=== PATIENT | female | born 1990 | race Caucasian/White ===

== ENCOUNTER 2016-06-26 23:58 | Emergency (ER) | payer MEDICAID ==
[~2016-06-26] VITALS: Ht 172.7 cm; Wt 75.0 kg
[~2016-06-26 23:58] MED LIST: ALBU8I INH; PRED20 PO; PREN0.01 PO
[2016-06-27 00:01] VITALS: BP 131/71; PULSE 85; RESP 16; TEMP 98.3; O2SAT 99
[2016-06-27 02:23] VITALS: BP 130/76; PULSE 72; RESP 19; O2SAT 98
--- NOTE | 2016-06-27 02:37 | PD ---
HPI Chief Complaint: Abdominal Pain Time Seen by Provider: 02:26 Travel History International Travel<30 days: No Contact w/Intl Traveler<30days: No Traveled to known affect area: No History of Present Illness HPI 25-year-old female complains of chest wall pain and low abdominal pain. Patient states that she has bilateral chest wall cramping intermittently since last night. Patient denies any chest wall pain now. Patient states that the pain is not associated with exertion. Patient denies any coughing congestion fever chills. Patient started having vaginal bleeding this morning. Patient states that the vaginal bleeding stopped completely. Patient started having low abdominal cramping this evening. Patient states that she has some mild vaginal discharge. Patient denies any dysuria or frequency. Patient denies any back pain. Patient states that her menstruation period has been irregular. Patient denies any history of CAD. Patient states that she has nausea but no vomiting or diarrhea. PFSH Past Medical History Asthma: Yes Diminished Hearing: No Genitourinary: Yes (UTI'S IN PAST) Immunizations Current: Yes Tetanus Vaccination: Unknown Influenza Vaccination: No ?: Unknown : 4 Para: 3 Miscarriage: 1 Past Surgical History Surgical History: No Previous Surgery Section: Yes (X1) Social History Alcohol Use: No Tobacco Use: Yes (1/2 PPD) Substance Use: No Allergies-Medications (Allergen,Severity, Reaction): Coded Allergies: Bactrim (Verified Allergy, Severe, FACE SWELLS, ITCHING, 06/27/16) Cipro (Verified Allergy, Severe, FACE SWELLING, ITCHING, 06/27/16) Reported Meds & Prescriptions Reported Meds & Active Scripts Active No Active Prescriptions or Reported Medications Review of Systems General / Constitutional: No: Fever Eyes: No: Visual changes HENT: No: Headaches Cardiovascular: Positive: Chest Pain or Discomfort Respiratory: No: Shortness of Breath Gastrointestinal: Positive: Nausea, Abdominal Pain Genitourinary: No: Dysuria Musculoskeletal: No: Pain Skin: No Rash Neurologic: No: Weakness Psychiatric: No: Depression Endocrine: No: Polydipsia Hematologic/Lymphatic: No: Easy Bruising Physical Exam Narrative GENERAL: Well-nourished, well-developed patient. SKIN: Focused skin assessment warm/dry. HEAD: Normocephalic. EYES: No scleral icterus. No injection or drainage. NECK: Supple, trachea midline. No JVD or lymphadenopathy. CARDIOVASCULAR: Regular rate and rhythm without murmurs, gallops, or rubs. RESPIRATORY: Breath sounds equal bilaterally. No accessory muscle use. GASTROINTESTINAL: Abdomen soft, nondistended. Patient has mild tenderness on palpation suprapubic area. No rebound tenderness. No mass. MUSCULOSKELETAL: No cyanosis, or edema. BACK: Nontender without obvious deformity. No CVA tenderness. Neurologic exam normal. 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 No cervical motion tenderness. Uterus not enlarged with moderate tenderness on palpation. No adnexal mass or tenderness. Data Data Last Documented VS Vital Signs Date Time Temp Pulse Resp B/P Pulse Ox O2 Delivery O2 Flow Rate FiO2 06/27/16 02:23 72 19 130/76 98 Room Air 06/27/16 00:01 98.3 Orders Complete Blood Count With Diff (06/27/16 02:33) Comprehensive Metabolic Panel (06/27/16 02:33) Gc And Chlamydia Pcr (06/27/16 02:33) Wet Prep Profile (06/27/16 02:33) Urinalysis - C+S If Indicated (06/27/16 02:33) Iv Access Insert/Monitor (06/27/16 02:33) Ed Urine Pregnancytest Poc (06/27/16 02:33) Ceftriaxone Inj (Rocephin Inj) (06/27/16 03:30) Labs Laboratory Tests Test 06/27/16 06/27/16 02:40 02:45 Urine Color YELLOW Urine Turbidity CLEAR Urine pH 5.5 Urine Specific [place] 1.023 Urine Protein NEG mg/dL Urine Glucose (UA) NEG mg/dL Urine Ketones NEG mg/dL Urine Occult Blood NEG Urine Nitrite NEG Urine Bilirubin NEG Urine Urobilinogen LESS THAN 2.0 MG/DL Urine Leukocyte Esterase NEG Urine RBC 1 /hpf Urine WBC 1 /hpf Urine Squamous Epithelial 2 /hpf Cells Microscopic Urinalysis Comment CULT NOT INDICATED White Blood Count 14.2 TH/MM3 Red Blood Count 5.16 MIL/MM3 Hemoglobin 12.8 GM/DL Hematocrit 39.9 % Mean Corpuscular Volume 77.2 FL Mean Corpuscular Hemoglobin 24.8 PG Mean Corpuscular Hemoglobin 32.2 % Concent Red Cell Distribution Width 15.8 % Platelet Count 308 TH/MM3 Mean Platelet Volume 8.8 FL Neutrophils (%) (Auto) 62.2 % Lymphocytes (%) (Auto) 27.7 % Monocytes (%) (Auto) 4.9 % Eosinophils (%) (Auto) 3.4 % Basophils (%) (Auto) 1.8 % Neutrophils # (Auto) 8.8 TH/MM3 Lymphocytes # (Auto) 3.9 TH/MM3 Monocytes # (Auto) 0.7 TH/MM3 Eosinophils # (Auto) 0.5 TH/MM3 Basophils # (Auto) 0.3 TH/MM3 CBC Comment AUTO DIFF MDM Medical Decision Making Medical Screen Exam Complete: Yes Emergency Medical Condition: Yes Interpretation(s) Urine test negative. CBC WBC 14.2. Normal differential. UA is negative. Differential Diagnosis Differential diagnosis: Musculoskeletal, angina, NH, PE, pneumothorax, UTI, cervicitis, PID, ovarian cyst, ovarian torsion, ectopic , threatened AB. Narrative Course 25-year-old female with chest pain and low abdominal pain. Diagnosis Primary Impression: Cervicitis Patient Instructions: General Instructions Additional Instructions: Take medications as directed. Follow-up with personal physician. Return if worse. Med/Other Pt SpecificInfo: Prescription(s) given Scripts Tramadol (Ultram)50 Mg Tab50 Mg PO Q6H PRN (PAIN) #12 TAB Ref 0 Prov:Og Sommer MD 06/27/16 Doxycycline Hyclate 100 Mg Xsc235 Mg PO BID #14 CAP Ref 0 Prov:Og Sommer MD 06/27/16 Metronidazole (Flagyl)500 Mg Tab4 Tab PO ONCE #4 TAB Ref 0 Prov:Og Sommer MD 06/27/16 Disposition: 01 DISCHARGE HOME Condition: Stable Og Sommer MD June 27, 2016 02:37
[2016-06-27 03:00] LABS: AUTOMATED NEUTROPHIL # 8.8 TH/MM3 (1.8-7.7); BASOPHIL # 0.3 TH/MM3 (0-0.2); BASOPHIL % 1.8 % (0.0-2.0); EOSINOPHIL # 0.5 TH/MM3 (0-0.4); EOSINOPHIL % 3.4 % (0.0-4.0); HEMATOCRIT 39.9 % (35.0-46.0); LYMPH % 27.7 % (9.0-44.0); LYMPHOCYTE # 3.9 TH/MM3 (1.0-4.8); MEAN CELL VOLUME 77.2 FL (80.0-100.0); MEAN CORPUSCULAR HEMOGLOBIN 24.8 PG (27.0-34.0); MEAN CORPUSCULAR HGB CONC 32.2 % (32.0-36.0); MONO % 4.9 % (0.0-8.0); NEUT % 62.2 % (16.0-70.0); PLATELET COUNT 308 TH/MM3 (150-450); RED BLOOD COUNT 5.16 MIL/MM3 (4.00-5.30); RED CELL DISTRIBUTION WIDTH 15.8 % (11.6-17.2); WHITE BLOOD COUNT 14.2 TH/MM3 (4.0-11.0)
[2016-06-27 03:02] LABS: BLOOD, URINE NEG (NEG); COMMENT (UR) CULT NOT INDICATED; CULTURE IF INDICATED CULT NOT INDICATED; GLUCOSE,URINE NEG (NEG); KETONE, URINE NEG (NEG); NITRITE,URINE NEG (NEG); PH, URINE 5.5 (5.0-8.5); SQUAMOUS EPITHELIAL CELL URINE 2 /hpf (0-5); URINE COLOR YELLOW (YELLW/STRAW)
[2016-06-27 03:10] LABS: HEMO FLAGS AUTO DIFF
[2016-06-27] MEDS ORDERED: METR-1 PO (03:22)
[2016-06-27] MEDS ORDERED: DOXY100C PO (03:22)
[2016-06-27] MEDS ORDERED: ULTR50TA5 PO (03:22)
[2016-06-27 03:29] LABS: ALT (GPT) 33 U/L (10-53); ANION GAP 8 MEQ/L (5-15); AST (GOT) 23 U/L (15-37); BICARBONATE 25.5 MEQ/L (21.0-32.0); BLOOD UREA NITROGEN 15 MG/DL (7-18); CHLORIDE 105 MEQ/L (98-107); GLOMERULAR FILTRATION RATE 65 ML/MIN (>89); POTASSIUM 3.8 MEQ/L (3.5-5.1); SODIUM (NA) 138 MEQ/L (136-145)
[2016-06-27 03:30] LABS: ALKALINE PHOSPHATASE 102 U/L (45-117); TOTAL BILIRUBIN ADULT 0.3 MG/DL (0.2-1.0)
[2016-06-27] MEDS ORDERED: AZITHROMYCIN PWD FOR SUSP 1 GM PACKET PO ONE (03:30)
[2016-06-27] MEDS ORDERED: cefTRIAXone INJ 1,000 MG in SODIUM CHLORIDE 0.9% INJ 100 ML IV ONE (03:30)
[2016-06-27 03:41] LABS: ACANTHOCYTES OCC (NORMAL); OVALOCYTES 1+ (NORMAL); PLATELET ESTIMATE SMEAR NORMAL (NORMAL); PLATELET MORPHOLOGY NORMAL (NORMAL); SCAN/DIFF AUTO DIFF CONFIRMED
[2016-06-27 04:28] VITALS: BP 114/61
[2016-06-27] MEDS ORDERED: ACETAMINOPHEN 325 MG TAB PO ONE (04:45)
[2016-06-27 05:27] LABS: CHLAMYDIA PCR NOT DETECTED (NOT DETECT); NEISSERIA PCR NOT DETECTED (NOT DETECT)
--- NOTE | 2016-06-27 19:41 | EKG ---
Date Performed: 06/27/2016 Time Performed: 02:22:20 PTAGE: 25 years EKG: Sinus rhythm WITH SINUS ARRHYTHMIA NORMAL ECG NO PREVIOUS TRACING DOCTOR: Conrado Gonzales Interpretating Date/Time 06/27/2016 19:40:05
[2016-07-12] MEDS ORDERED: ETON1IMP I-DERMAL (15:58)
[2016-07-12] MEDS ORDERED: FLUC150T PO (16:31)
== END 2016-06-27 04:43 | disposition home or self-care (01) ==
LOC: NEPC 23:58
DX: N72 Inflammatory disease of cervix uteri (principal); F17.210 Nicotine dependence, cigarettes, uncomplicated
CPT/HCPCS: 80053; 81001; 84703; 85025; 87210; 87491; 87591; 93005; 96365; 99284; J0696

== ENCOUNTER 2016-07-01 09:10 | Emergency (ER) | payer MEDICAID ==
[~2016-07-01] VITALS: Ht 160 cm; Wt 100.0 kg
[~2016-07-01 09:10] MED LIST changes: -ALBU8I INH; +DOXY100C PO; +METR-1 PO; -PRED20 PO; -PREN0.01 PO; +ULTR50TA5 PO
[2016-07-01 09:12] VITALS: BP 151/97; PULSE 87; RESP 16; TEMP 98; O2SAT 99
[2016-07-01 09:21] VITALS: BP 125/68; PULSE 84; RESP 15; O2SAT 99
--- NOTE | 2016-07-01 09:57 | PD ---
Data Data Last Documented VS Vital Signs Date Time Temp Pulse Resp B/P Pulse Ox O2 Delivery O2 Flow Rate FiO2 07/01/16 09:21 84 15 125/68 99 Room Air 07/01/16 09:12 98.0 [facility] Supervised Visit with JAGDISH: Yes Narrative Course The history, exam, and medical decision-making in the associated mid-level provider note were completed with my assistance. I reviewed and agree with the findings presented. I attest that I had a [id number] encounter with the patient on the same day, and personally performed and documented my assessment and findings in the medical record. *My assessment and Findings: To 25-year-old woman who presents to the emergency Department ongoing lower abdominal pain. Seen 5 days ago for the same. She has some vaginal discharge and bleeding, as well as nausea and vomiting. Previous workup was negative. Given the discharge and the pelvic pain she was treated for PID. She still taking doxycycline. Her chlamydia and gonorrhea PCR is were negative. Her partner was reportedly test was negative as well. She presents back to the emergency department today because she still feels unwell, vomiting, lower abdominal discomfort. At this point, she has a benign abdominal exam. She has some mild lower abdominal tenderness. She saw some cervical motion tenderness. 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 Scripts No Active Prescriptions or Reported Meds Maynor Guzman MD July 01, 2016 09:57
[2016-07-01] MEDS ORDERED: NAPR500 PO (10:04)
--- NOTE | 2016-07-01 10:09 | PD ---
HPI Chief Complaint: Abdominal Pain Time Seen by Provider: 09:25 Travel History International Travel<30 days: No Contact w/Intl Traveler<30days: No Traveled to known affect area: No History of Present Illness HPI 25 year old female presents with c/o of lower abd pain & vaginal bleeding starting last night. She reports the bleeding was similar to a menstrual period & has since stopped. She describes the pain as intermittent cramping in the lower abd, non radiating, associated with N/V. She denies fever, chills, dysuria , urgency or frequency. She was seen & treated here 06/20/16 for cervicitis, although her GC/Chlamydia/Trich were negative. She denies PMH. Home meds: doxycycline & ultram PRN. PFSH Past Medical History Asthma: Yes Diminished Hearing: No Genitourinary: Yes (UTI'S IN PAST) Immunizations Current: Yes ?: Not : 4 Para: 3 Miscarriage: 1 Past Surgical History Section: Yes (X1) Social History Alcohol Use: No Tobacco Use: Yes (1/2 PPD) Substance Use: No Allergies-Medications (Allergen,Severity, Reaction): Coded Allergies: Bactrim (Verified Allergy, Severe, FACE SWELLS, ITCHING, 07/01/16) Cipro (Verified Allergy, Severe, FACE SWELLING, ITCHING, 07/01/16) Reported Meds & Prescriptions Reported Meds & Active Scripts Active No Active Prescriptions or Reported Medications Review of Systems Except as stated in HPI: all other systems reviewed are Neg Physical Exam Narrative GENERAL: Well appearing young black female. SKIN: Warm and dry. HEAD: Normocephalic. EYES: No scleral icterus. No injection or drainage. NECK: Supple, trachea midline. No JVD or lymphadenopathy. CARDIOVASCULAR: Regular rate and rhythm without murmurs, gallops, or rubs. RESPIRATORY: Breath sounds equal bilaterally. No accessory muscle use. GASTROINTESTINAL: Abdomen soft, mild suprapubic tenderness, nondistended. MUSCULOSKELETAL: No cyanosis, or edema. UROGENITAL: small amount of blood tinged discharge within the vaginal vault, Cervix non friable, Mild cervical motion tenderness, No adnexal mass or tenderness. BACK: Nontender without obvious deformity. No CVA tenderness. Data Data Last Documented VS Vital Signs Date Time Temp Pulse Resp B/P Pulse Ox O2 Delivery O2 Flow Rate FiO2 07/01/16 09:21 84 15 125/68 99 Room Air 07/01/16 09:12 98.0 MDM Medical Decision Making Medical Screen Exam Complete: Yes Emergency Medical Condition: Yes Medical Record Reviewed: Yes Differential Diagnosis endometriosis vs PID vs DUB Narrative Course 25 year old female presents with persistent mild lower abd pain cramping & minor vaginal bleeding/spotting. She is currently being tx for cervicitis, although her results were negative for GC/Chlamydia/Trich. Her physical exam is primarily benign. Plan is to continue Doxy & F/U with DIRECTOR OF SPECIAL SERVICES. Diagnosis Primary Impression: Endometriosis Patient Instructions: General Instructions Med/Other Pt SpecificInfo: Prescription(s) given Scripts Naproxen (Naprosyn)500 Mg [id number] Mg PO BID #20 TAB Ref 0 Prov:Divya Rodriguez 07/01/16 Disposition: 01 DISCHARGE HOME Condition: Stable Divya Rodriguez July 01, 2016 10:09
--- NOTE | 2016-07-05 22:03 | PD ---
HPI Chief Complaint: Abdominal Pain Time Seen by Provider: 09:25 Travel History International Travel<30 days: No Contact w/Intl Traveler<30days: No Traveled to known affect area: No History of Present Illness HPI 25 year old female presents with C/O of lower abd pain & vaginal bleeding starting last night. She reports the bleeding was similar to a menstrual period & has since stopped. She describes the pain as intermittent cramping in the lower ABD, non radiating, associated with N/V.She denies fever, chills, dysuria , urgency or frequency. She was seen & treated here 06/20/16 for cervicitis, although her GC/Chlamydia/Trich were negative. She denies PMH. Home meds: Doxy & ultram PRN. PFSH Past Medical History Asthma: Yes Diminished Hearing: No Genitourinary: Yes (UTI'S IN PAST) Immunizations Current: Yes ?: Not : 4 Para: 3 Miscarriage: 1 Past Surgical History Section: Yes (X1) Social History Alcohol Use: No Tobacco Use: Yes (1/2 PPD) Substance Use: No Allergies-Medications (Allergen,Severity, Reaction): Coded Allergies: Bactrim (Verified Allergy, Severe, FACE SWELLS, ITCHING, 07/01/16) Cipro (Verified Allergy, Severe, FACE SWELLING, ITCHING, 07/01/16) Reported Meds & Prescriptions Reported Meds & Active Scripts Active Naprosyn (Naproxen) 500 Mg Tab 500 Mg PO BID Review of Systems Except as stated in HPI: all other systems reviewed are Neg Physical Exam Narrative GENERAL: well appearing young black female. SKIN: Warm and dry. HEAD: Atraumatic. Normocephalic. EYES: Pupils equal and round. No scleral icterus. No injection or drainage. ENT: No nasal bleeding or discharge. Mucous membranes pink and moist. NECK: Trachea midline. No JVD. CARDIOVASCULAR: Regular rate and rhythm. RESPIRATORY: No accessory muscle use. Clear to auscultation. Breath sounds equal bilaterally. GASTROINTESTINAL: Abdomen soft, mild suprapubic tenderness, nondistended. Hepatic and splenic margins not palpable. MUSCULOSKELETAL: Extremities without clubbing, cyanosis, or edema. No obvious deformities. UROGENITAL: small amount of blood tinged vaginal discharge within the vaginal vault. cervix non friable, mild cervical motion tenderness, no adnexal mass or tenderness. PSYCHIATRIC: Appropriate mood and affect; insight and judgment normal. Data Data Last Documented VS Vital Signs Date Time Temp Pulse Resp B/P Pulse Ox O2 Delivery O2 Flow Rate FiO2 07/01/16 09:21 84 15 125/68 99 Room Air 07/01/16 09:12 98.0 Orders Ed Urine Pregnancytest Poc (07/01/16 10:10) MDM Medical Decision Making Medical Screen Exam Complete: Yes Emergency Medical Condition: Yes Medical Record Reviewed: Yes Differential Diagnosis PID vs DUB vs endometritis vs other Narrative Course 25 year old female presents with persistent mild lower abd pain cramping & minor bleeding/spotting. She is currently being TX for cervicitis. Her physical exam is primarily benign. Plan is to continue Doxy & F/U with Genetic Supervisor Diagnosis Primary Impression: Endometriosis Patient Instructions: General Instructions, Endometriosis (ED), Cervicitis (ED) Departure Forms: Tests/Procedures Scripts Naproxen (Naprosyn)500 Mg [id number] Mg PO BID #20 TAB Ref 0 Prov:Divya Rodriguez 07/01/16 Disposition: 01 DISCHARGE HOME Condition: Stable Divya Rodriguez July 05, 2016 22:03
[2016-07-12] MEDS ORDERED: ETON1IMP I-DERMAL (15:58)
[2016-07-12] MEDS ORDERED: FLUC150T PO (16:31)
== END 2016-07-01 10:36 | disposition home or self-care (01) ==
LOC: NEPD 09:10
DX: N73.9 Female pelvic inflammatory disease, unspecified (principal); N80.9 Endometriosis, unspecified
CPT/HCPCS: 84703; 99283

== ENCOUNTER 2016-10-29 22:11 | Emergency (ER) | payer MEDICAID ==
[~2016-10-29] VITALS: Ht 162.6 cm; Wt 108.0 kg
[~2016-10-29 22:11] MED LIST changes: -DOXY100C PO; +ETON1IMP I-DERMAL; +FLUC150T PO; -METR-1 PO; -ULTR50TA5 PO
[2016-10-29 22:12] VITALS: BP 133/77; PULSE 87; RESP 16; TEMP 97.7; O2SAT 98
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
[2016-10-29] MEDS ORDERED: DEXAMETHASONE SOD PHOS 20 MG/5 ML VIAL IM ONE (22:30)
[2016-10-29] MEDS ORDERED: MEDR4PAK PO (22:32)
[2016-10-29] MEDS ORDERED: ALBUAER3 INH (22:32)
== END 2016-10-29 22:44 | disposition home or self-care (01) ==
LOC: EDTENT 22:11
DX: J45.901 Unspecified asthma with (acute) exacerbation (principal); S39.012A Strain of muscle, fascia and tendon of lower back, initial encounter; F17.200 Nicotine dependence, unspecified, uncomplicated; Z87.09 Personal history of other diseases of the respiratory system; Z87.440 Personal history of urinary (tract) infections; X50.0XXA Overexertion from strenuous movement or load, initial encounter
CPT/HCPCS: 96372; 99284; J1100

== ENCOUNTER 2017-04-30 23:02 | Emergency (ER) | payer MEDICAID ==
[~2017-04-30] VITALS: Ht 162.6 cm; Wt 121.2 kg
[~2017-04-30 23:02] MED LIST changes: +ALBUAER3 INH; +MEDR4PAK PO
[2017-04-30 23:08] VITALS: BP 153/81; PULSE 87; RESP 18; TEMP 98.1; O2SAT 97
[2017-05-01] MEDS ORDERED: KETOROLAC TROMETHAMINE 30 MG/ML (IVP) VIAL IV PUSH ONE (00:15)
[2017-05-01] MEDS ORDERED: SODIUM CHLORIDE 0.9% FLUSH 10 ML FLUSH IVF PRN (00:15)
[2017-05-01 00:49] VITALS: O2SAT 99
[2017-05-01 01:09] LABS: BILIRUBIN, URINE NEG (NEG); BLOOD, URINE TRACE (NEG); GLUCOSE,URINE NEG (NEG); KETONE, URINE NEG (NEG); NITRITE,URINE NEG (NEG); URINE COLOR YELLOW (YELLW/STRAW); URINE LEUKOCYTE ESTERASE NEG (NEG)
[2017-05-01 01:09] LABS: BASOPHIL # 0.2 TH/MM3 (0-0.2); BASOPHIL % 1.7 % (0.0-2.0); EOSINOPHIL # 0.9 TH/MM3 (0-0.4); EOSINOPHIL % 5.8 % (0.0-4.0); HEMATOCRIT 41.7 % (35.0-46.0); HEMOGLOBIN 13.4 GM/DL (11.6-15.3); LYMPH % 27.5 % (9.0-44.0); MEAN CELL VOLUME 78.8 FL (80.0-100.0); MEAN CORPUSCULAR HEMOGLOBIN 25.4 PG (27.0-34.0); MEAN CORPUSCULAR HGB CONC 32.3 % (32.0-36.0); MEAN PLATELET VOLUME 8.8 FL (7.0-11.0); MONO % 4.1 % (0.0-8.0); MONOCYTE # 0.6 TH/MM3 (0-0.9); NEUT % 60.9 % (16.0-70.0); PLATELET COUNT 297 TH/MM3 (150-450); RED BLOOD COUNT 5.28 MIL/MM3 (4.00-5.30); RED CELL DISTRIBUTION WIDTH 14.5 % (11.6-17.2); WHITE BLOOD COUNT 14.7 TH/MM3 (4.0-11.0)
[2017-05-01 01:20] LABS: CHLORIDE 103 MEQ/L (98-107); SODIUM (NA) 137 MEQ/L (136-145)
[2017-05-01 01:21] LABS: AMORPHOUS SEDIMENT, URINE FEW; RBC, URINE 0-3 /hpf (0-3)
[2017-05-01 01:22] LABS: BACTERIA, URINE MOD /hpf
[2017-05-01 01:22] LABS: CALCIUM 9.2 MG/DL (8.5-10.1)
[2017-05-01 01:23] LABS: BICARBONATE 25.9 MEQ/L (21.0-32.0); BLOOD UREA NITROGEN 17 MG/DL (7-18); GLUCOSE,RANDOM 100 MG/DL (74-106); MAGNESIUM 2.3 MG/DL (1.5-2.5)
[2017-05-01 01:25] LABS: PROTHROMBIN TIME - PATIENT 10.6 SEC (9.8-11.6)
[2017-05-01 01:27] LABS: GLOMERULAR FILTRATION RATE 61 ML/MIN (>89)
[2017-05-01 01:31] LABS: TROPONIN I LESS THAN 0.02 NG/ML (0.02-0.05)
--- NOTE | 2017-05-01 01:35 | RADRPT ---
EXAM DATE/TIME: 05/01/2017 01:17 [facility] COMPARISON: No previous studies available for comparison. INDICATIONS : Dizziness. RADIATION DOSE: 69=8.21 CTDIvol (mGy) MEDICAL HISTORY : None SURGICAL HISTORY : None. ENCOUNTER: Initial ACUITY: 1 day PAIN SCALE: 0/10 LOCATION: cranial TECHNIQUE: Multiple contiguous axial images were obtained of the head. Using automated exposure control and adj ustment of the mA and/or kV according to patient size, radiation dose was kept as low as reasonably a chievable to obtain optimal diagnostic quality images. DICOM format image data is available electro nically for review and comparison. FINDINGS: CEREBRUM: The ventricles are normal for age. No evidence of midline shift, mass lesion, hemorrhage or acute in farction. No extra-axial fluid collections are seen. POSTERIOR FOSSA: The cerebellum and brainstem are intact. The 4th ventricle is midline. The cerebellopontine angle i s unremarkable. EXTRACRANIAL: The visualized portion of the orbits is intact. SKULL: The calvaria is intact. No evidence of skull fracture. CONCLUSION: Normal examination. Ray Caballero Jr., MD on May 01, 2017 at 1:33 Board Certified Radiologist. This report was verified electronically.
--- NOTE | 2017-05-01 01:36 | RADRPT ---
EXAM DATE/TIME: 05/01/2017 01:17 [facility] COMPARISON: No previous studies available for comparison. INDICATIONS : Neck pain. RADIATION DOSE: 37.59 CTDIvol (mGy) MEDICAL HISTORY : None SURGICAL HISTORY : None. ENCOUNTER: Initial ACUITY: 1 day PAIN SCALE: 8/10 LOCATION: neck TECHNIQUE: Volumetric scanning of the cervical spine was performed. Multiplanar reconstructions in the sagittal, coronal and oblique axial planes were performed. Using automated exposure control and adjustment o f the mA and/or kV according to patient size, radiation dose was kept as low as reasonably achievable to obtain optimal diagnostic quality images. DICOM format image data is available electronically f or review and comparison. FINDINGS: VERTEBRAE: Normal vertebral body height. ALIGNMENT: No evidence of subluxation. C2-C3: The bony spinal canal is normal in size. No evidence of disc bulge or herniation. The neural forami na are bilaterally patent. C3-C4: The bony spinal canal is normal in size. No evidence of disc bulge or herniation. The neural forami na are bilaterally patent. C4-C5: The bony spinal canal is normal in size. No evidence of disc bulge or herniation. The neural forami na are bilaterally patent. C5-C6: The bony spinal canal is normal in size. No evidence of disc bulge or herniation. The neural forami na are bilaterally patent. C6-C7: The bony spinal canal is normal in size. No evidence of disc bulge or herniation. The neural forami na are bilaterally patent. C7-T1: The bony spinal canal is normal in size. No evidence of disc bulge or herniation. The neural forami na are bilaterally patent. CONCLUSION: Normal examination. Ray Caballero Jr., MD on May 01, 2017 at 1:34 Board Certified Radiologist. This report was verified electronically.
[2017-05-01 01:40] VITALS: BP 108/55; PULSE 77; RESP 16; O2SAT 97
--- NOTE | 2017-05-01 01:57 | PD ---
HPI Chief Complaint: Back/ Neck Pain or Injury Time Seen by Provider: 00:11 Travel History International Travel<30 days: No Contact w/Intl Traveler<30days: No Traveled to known affect area: No History of Present Illness HPI 26-year-old female presents to the emergency department by private transportation for evaluation of low back pain with radiation to the left lower extremity without bladder or bowel dysfunction saddle anesthesia or lower extremity numbness tingling or weakness. Patient does complain of back pain and left lower extremity pain. 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 Patient states she does not know whether or not she has been sleeping on her right upper extremity when she awakened this morning with sharp pain in the arm. The sharp pain has resolved and patient denies any weakness of the right upper extremity. Patient is right-handed. Patient reports that when she was using a screwdriver she felt like her hand was shaking but her sibling told her that this is not a new finding that she has done this for some time. Patient denies any fever or chills. Patient reports she recently completed a course of antibiotic for urinary tract infection. Patient denies as she has an implant for control. Patient does admit to tobacco use. Patient denies any chest pain pleuritic chest pain or shortness of breath. Patient also denies any alcohol use and denies any substance use and denies IV drug abuse. [facility] Past Medical History Narrative Medical Asthma UTI tobacco use; nursing notes reviewed Asthma: Yes Diminished Hearing: No Genitourinary: Yes (UTI'S IN PAST) Immunizations Current: Yes Tetanus Vaccination: Unknown ?: Not LMP: 1 year ago : 4 Para: 3 Miscarriage: 1 Past Surgical History Section: Yes (X1) Social History Alcohol Use: No Tobacco Use: Yes (/2 PPD) Substance Use: No Allergies-Medications (Allergen,Severity, Reaction): Coded Allergies: ciprofloxacin (Verified Allergy, Severe, FACE SWELLING, ITCHING, 04/30/17) sulfamethoxazole (Verified Allergy, Severe, FACE SWELLS, ITCHING, 3/13/18) trimethoprim (Verified Allergy, Severe, FACE SWELLS, ITCHING, 04/30/17) Reported Meds & Prescriptions Reported Meds & Active Scripts Active Proair Hfa 8.5 GM Inh (Albuterol Sulfate) 90 Mcg/Act Aer 2 Puff INH Q4HR PRN 108 mcg/actuation Reported Nexplanon Implant (Etonogestrel Implant) 68 Mg Imp 68 Mg I-DERMAL ONCE Review of Systems Except as stated in HPI: all other systems reviewed are Neg Physical Exam Narrative GENERAL: Well-developed well-nourished female no acute distress no respiratory distress; GCS 15 SKIN: Warm and dry. HEAD: Atraumatic. Normocephalic. EYES: Pupils equal and round. No scleral icterus. No injection or drainage. ENT: No nasal bleeding or discharge. Mucous membranes pink and moist. NECK: Trachea midline. No JVD. CARDIOVASCULAR: Regular rate and rhythm. RESPIRATORY: No accessory muscle use. Clear to auscultation. Breath sounds equal bilaterally. GASTROINTESTINAL: Abdomen soft, non-tender, nondistended. Hepatic and splenic margins not palpable. MUSCULOSKELETAL: Extremities without clubbing, cyanosis, or edema. No obvious deformities. Positive Phalen's test right upper extremity. Distally neurovascular tendon intact. Thumb opposition intact. Capillary refill brisk and less than 2 seconds. Radial dorsalis pedal pulses 2+ to palpation bilaterally. NEUROLOGICAL: Awake and alert. GCS 15. No obvious cranial nerve deficits. Motor grossly within normal limits. Five out of 5 muscle strength in the arms and legs. Sensory exam intact. No limb ataxia. No pronator drift. Normal speech. PSYCHIATRIC: Appropriate mood and affect; insight and judgment normal. Data Data Last Documented VS Vital Signs Date Time Temp Pulse Resp B/P (MAP) Pulse Ox O2 Delivery O2 Flow Rate FiO2 05/01/17 01:40 77 16 108/55 (72) 97 Room Air 04/30/17 23:08 98.1 Orders Orders Basic Metabolic Panel (Bmp) (05/01/17 00:11) Ed Urine Pregnancytest Poc (05/01/17 00:11) Complete Blood Count With Diff (05/01/17 00:11) Magnesium (Mg) (05/01/17 00:11) Troponin I (05/01/17 00:11) Act Partial Throm Time (Ptt) (05/01/17 00:11) Prothrombin Time / Inr (Pt) (05/01/17 00:11) Urinalysis - C+S If Indicated (05/01/17 00:11) Ct Brain W/O Iv Contrast(Rout) (05/01/17 00:11) Ct Cerv Spine W/O Contrast (05/01/17 00:11) Blood Glucose (05/01/17 00:11) Ecg Monitoring (05/01/17 00:11) Iv Access Insert/Monitor (05/01/17 00:11) Oximetry (05/01/17 00:11) Sodium Chloride 0.9% Flush (Ns Flush) (05/01/17 00:15) Ketorolac Inj (Toradol Inj) (05/01/17 00:15) Urine Culture (05/01/17 00:35) Ceftriaxone Inj (Rocephin Inj) (05/01/17 02:15) Ed Discharge Order (05/01/17 02:02) Splint Or Brace Apply/Monitor (05/01/17 02:21) Labs Laboratory Tests Test 05/01/17 00:35 05/01/17 00:45 Urine Collection Type CLEAN CATCH Urine Color YELLOW Urine Turbidity SL CLOUDY Urine pH 6.0 Urine Specific [place] 1.020 Urine Protein NEG mg/dL Urine Glucose (UA) NEG mg/dL Urine Ketones NEG mg/dL Urine Occult Blood TRACE Urine Nitrite NEG Urine Bilirubin NEG Urine Urobilinogen 0.2 MG/DL Urine Leukocyte Esterase NEG Urine RBC 0-3 /hpf Urine WBC 3-5 /hpf Urine Squamous Epithelial Cells 6-8 /hpf Urine Amorphous Sediment FEW Urine Bacteria MOD /hpf Microscopic Urinalysis Comment CULTURE INDICATED White Blood Count 14.7 TH/MM3 Red Blood Count 5.28 MIL/MM3 Hemoglobin 13.4 GM/DL Hematocrit 41.7 % Mean Corpuscular Volume 78.8 FL Mean Corpuscular Hemoglobin 25.4 PG Mean Corpuscular Hemoglobin Concent 32.3 % Red Cell Distribution Width 14.5 % Platelet Count 297 TH/MM3 Mean Platelet Volume 8.8 FL Neutrophils (%) (Auto) 60.9 % Lymphocytes (%) (Auto) 27.5 % Monocytes (%) (Auto) 4.1 % Eosinophils (%) (Auto) 5.8 % Basophils (%) (Auto) 1.7 % Neutrophils # (Auto) 9.0 TH/MM3 Lymphocytes # (Auto) 4.0 TH/MM3 Monocytes # (Auto) 0.6 TH/MM3 Eosinophils # (Auto) 0.9 TH/MM3 Basophils # (Auto) 0.2 TH/MM3 CBC Comment DIFF FINAL Differential Comment Prothrombin Time 10.6 SEC Prothromb Time International Ratio 1.0 RATIO Activated Partial Thromboplast Time 29.4 SEC Blood Urea Nitrogen 17 MG/DL Creatinine 1.10 MG/DL Random Glucose 100 MG/DL Calcium Level 9.2 MG/DL Magnesium Level 2.3 MG/DL Sodium Level 137 MEQ/L Potassium Level 3.8 MEQ/L Chloride Level 103 MEQ/L Carbon Dioxide Level 25.9 MEQ/L Anion Gap 8 MEQ/L Estimat Glomerular Filtration Rate 61 ML/MIN Troponin I LESS THAN 0.02 NG/ML MDM Medical Decision Making Medical Screen Exam Complete: Yes Emergency Medical Condition: Yes Medical Record Reviewed: Yes Interpretation(s) Last Impressions Head CT 05/01/1710 Signed Impressions: Service Date/Time: Monday, May 01, 2017 01:17 - CONCLUSION: Normal examination. Ray Caballero Jr., MD Cervical Spine CT 05/01/1710 Signed Impressions: Service Date/Time: Monday, May 01, 2017 01:17 - CONCLUSION: Normal examination. Ray Caballero Jr., MD CBC & BMP Diagram 05/01/17 00:45 Calcium Level 9.2, Magnesium Level 2.3 Vital Signs Date Time Temp Pulse Resp B/P (MAP) Pulse Ox O2 Delivery O2 Flow Rate FiO2 05/01/17 01:40 77 16 108/55 (72) 97 Room Air 05/01/17 00:49 99 Room Air 04/30/17 23:58 16 04/30/17 23:08 98.1 87 18 153/81 (105) 97 Differential Diagnosis Sciatica, cervical radiculopathy, carpal tunnel syndrome, UTI, TIA, CVA, neuropathy, compartment syndrome Narrative Course IV access obtained specimens collected and sent for resulting Imaging studies ordered without acute abnormality Urinalysis moderate bacteria patient given first dose of oral antibiotic pain relief noted after IV Toradol Patient is stable for outpatient management and follow-up with her primary care provider No work 1 day Diagnosis Primary Impression: UTI (urinary tract infection) Qualified Codes: N39.0 - Urinary tract infection, site not specified Additional Impressions: Left sided sciatica Right carpal tunnel syndrome Referrals: Primary Care Physician call for appointment Patient Instructions: General Instructions Additional Instructions: Follow-up with your primary care provider Return to the emergency department for any concerns or change in condition Take medication as prescribed Complete course of antibiotic May use splint as provided Med/Other Pt SpecificInfo: Prescription(s) given Scripts Tramadol (Tramadol) 50 Mg Tab 50 MG PO Q6H Y for PAIN, #7 TAB 0 Refills Prov: Shayla Bloom MD 05/01/17 Methocarbamol (Robaxin) 750 Mg Tab 750 MG PO Q6HR for Muscle Spasm, #10 TAB 0 Refills Prov: Shayla Bloom MD 05/01/17 Ibuprofen (Ibuprofen) 800 Mg Tab 800 MG PO Q8H Y for PAIN GREATER THAN 5, #12 TAB 0 Refills Prov: Shayla Bloom MD 05/01/17 Nitrofurantoin Monohydrate Macrocrystals (Macrobid) 100 Mg Cap 100 MG PO BID for Infection for 7 Days, #14 CAP 0 Refills Prov: Shayla Bloom MD 05/01/17 Disposition: 01 DISCHARGE HOME Condition: Stable Shayla Bloom MD May 01, 2017 01:57
[2017-05-01] MEDS ORDERED: cefTRIAXone INJ 1,000 MG in SODIUM CHLORIDE 0.9% INJ 100 ML IV ONE (02:15)
[2017-05-01] MEDS ORDERED: MACR100C2 PO (02:46)
[2017-05-01] MEDS ORDERED: TRAM50TA PO (02:46)
[2017-05-01] MEDS ORDERED: ROBA750T PO (02:46)
[2017-05-01] MEDS ORDERED: IBUP1TAB7 PO (02:46)
[2017-05-01 02:52] VITALS: BP 99/55; PULSE 84; RESP 16; O2SAT 97
== END 2017-05-01 03:18 | disposition home or self-care (01) ==
LOC: PHED 23:02
DX: N39.0 Urinary tract infection, site not specified (principal); M54.32 Sciatica, left side; G56.01 Carpal tunnel syndrome, right upper limb; B96.89 Other specified bacterial agents as the cause of diseases classified elsewhere; M79.605 Pain in left leg; J45.909 Unspecified asthma, uncomplicated; F17.210 Nicotine dependence, cigarettes, uncomplicated
CPT/HCPCS: 70450; 72125; 80048; 81001; 83735; 84484; 84703; 85025; 85610; 85730; 87086; 96365; 96375; 99284; J0696; J1885; L3908

== ENCOUNTER 2017-05-12 17:48 | Emergency (ER) | payer MEDICAID ==
[~2017-05-12] VITALS: Ht 160 cm; Wt 123.0 kg
[~2017-05-12 17:48] MED LIST changes: -FLUC150T PO; +IBUP1TAB7 PO; +MACR100C2 PO; -MEDR4PAK PO; +ROBA750T PO; +TRAM50TA PO
[2017-05-12 17:52] VITALS: BP 136/96; PULSE 97; RESP 12; TEMP 98.4; O2SAT 95
--- NOTE | 2017-05-12 19:42 | RADRPT ---
EXAM DATE/TIME: 05/12/2017 19:10 [facility] COMPARISON: No previous studies available for comparison. INDICATIONS : Fell climbing over a fence. MEDICAL HISTORY : None. SURGICAL HISTORY : None. ENCOUNTER: Initial ACUITY: 1 day PAIN SCORE: 4/10 LOCATION: lumbar spine FINDINGS: Two view examination was performed. There are five non-rib bearing vertebral bodies. The vertebral bodies are in normal alignment without evidence of subluxation or scoliosis. Minimal loss of disc sp yanet height L5-S1. The pedicles are intact. Bony mineralization is normal. No fracture is identifie d. CONCLUSION: No fracture. Minimal loss of disc space height L5-S1.. Guillaume Novak MD FACR on May 12, 2017 at 19:39 Board Certified Radiologist. This report was verified electronically.
--- NOTE | 2017-05-12 19:43 | RADRPT ---
EXAM DATE/TIME: 05/12/2017 19:10 [facility] COMPARISON: No previous studies available for comparison. INDICATIONS : Abrasion on posterior elbow after fall while climbing a fence. MEDICAL HISTORY : None. SURGICAL HISTORY : None. ENCOUNTER: Initial ACUITY: 1 day PAIN SCORE: 4/10 LOCATION: Left elbow FINDINGS: Two view examination of the left elbow demonstrates no soft tissue swelling, joint effusion, fracture or dislocation. Bony mineralization is normal. CONCLUSION: No fracture. Complete series is suggested the patient remains symptomatic. Subtle fractures can eas marco be missed on 2 views.. Guillaume Novak MD FACR on May 12, 2017 at 19:40 Board Certified Radiologist. This report was verified electronically.
--- NOTE | 2017-05-12 19:44 | RADRPT ---
EXAM DATE/TIME: 05/12/2017 19:10 [facility] COMPARISON: No previous studies available for comparison. INDICATIONS : Left wrist pain after falling while climbing a fence. MEDICAL HISTORY : None. SURGICAL HISTORY : None. ENCOUNTER: Initial ACUITY: 1 day PAIN SCORE: 4/10 LOCATION: Left wrist FINDINGS: Three view examination of the left wrist demonstrates no soft tissue swelling, dislocation, or fractu re. The carpal bones are in normal alignment. The joint spaces are maintained. Bony mineralization is normal. CONCLUSION: Negative for fracture. Guillaume Novak MD FACR on May 12, 2017 at 19:41 Board Certified Radiologist. This report was verified electronically.
--- NOTE | 2017-05-12 19:54 | RADRPT ---
EXAM DATE/TIME: 05/12/2017 19:10 [facility] COMPARISON: No previous studies available for comparison. INDICATIONS : Right lateral ankle pain after falling while climbing a fence. MEDICAL HISTORY : None. SURGICAL HISTORY : None. ENCOUNTER: Initial ACUITY: 1 day PAIN SCORE: 4/10 LOCATION: Right ankle FINDINGS: Marked soft tissue swelling about the ankle more so on the medial side. Fracture is not appreciated. The CT scan could be used to exclude the subtle fracture; correlation is suggested. CONCLUSION: Marked soft tissue swelling without identifiable fracture. Guillaume Novak MD FACR on May 12, 2017 at 19:49 Board Certified Radiologist. This report was verified electronically.
--- NOTE | 2017-05-12 20:00 | RADRPT ---
EXAM DATE/TIME: 05/12/2017 19:43 [facility] COMPARISON: CT BRAIN W/O CONTRAST, May 01, 2017, 1:17. INDICATIONS : Trauma. Fall. RADIATION DOSE: 57.44 CTDIvol (mGy) MEDICAL HISTORY : None SURGICAL HISTORY : None. ENCOUNTER: Initial ACUITY: 1 day PAIN SCALE: 8/10 LOCATION: occipital TECHNIQUE: Multiple contiguous axial images were obtained of the head. Using automated exposure control and adj ustment of the mA and/or kV according to patient size, radiation dose was kept as low as reasonably a chievable to obtain optimal diagnostic quality images. DICOM format image data is available electro nically for review and comparison. FINDINGS: CEREBRUM: The ventricles are normal for age. No evidence of midline shift, mass lesion, hemorrhage or acute in farction. No extra-axial fluid collections are seen. POSTERIOR FOSSA: The cerebellum and brainstem are intact. The 4th ventricle is midline. The cerebellopontine angle i s unremarkable. EXTRACRANIAL: The visualized portion of the orbits is intact. SKULL: The calvaria is intact. No evidence of skull fracture. CONCLUSION: Negative for acute process in Guillaume Novak MD FACR on May 12, 2017 at 19:57 Board Certified Radiologist. This report was verified electronically.
[2017-05-12] MEDS ORDERED: IBUP1TAB7 PO (20:26)
[2017-05-12] MEDS ORDERED: ROBA750T PO (20:26)
--- NOTE | 2017-05-12 20:26 | PD ---
HPI Chief Complaint: Injury Time Seen by Provider: 18:47 Travel History International Travel<30 days: No Contact w/Intl Traveler<30days: No Traveled to known affect area: No History of Present Illness HPI This is a 26-year-old female here with multiple injuries after she fell off a fence from approximately 3-4 feet. He reports she was climbing over fence when her foot was stuck and fell backwards onto her right ankle, left elbow and back. She denies loss of consciousness. She now has a mild, gradual onset, generalized headache. Left elbow pain with range of motion. Right ankle pain with weightbearing. Low back pain. All pain is exacerbated by movement and slightly relieved with rest. She denies neck pain, chest pain, shortness breath , abdominal pain, paresthesia or weakness of the extremities. Symptom severity is moderate. PFSH Past Medical History Medical History: Denies Significant Hx Asthma: Yes Diminished Hearing: No Genitourinary: Yes (UTI'S IN PAST) Immunizations Current: Yes Tetanus Vaccination: > 5 Years Influenza Vaccination: No ?: Not LMP: NEXPLANON : 4 Para: 3 Miscarriage: 1 Past Surgical History Section: Yes (X1) Social History Alcohol Use: No Tobacco Use: Yes (1/2 PPD) Substance Use: No Allergies-Medications (Allergen,Severity, Reaction): Coded Allergies: ciprofloxacin (Verified Allergy, Severe, FACE SWELLING, ITCHING, 05/12/17) sulfamethoxazole (Verified Allergy, Severe, FACE SWELLS, ITCHING, 05/12/17) trimethoprim (Verified Allergy, Severe, FACE SWELLS, ITCHING, 05/12/17) Reported Meds & Prescriptions Reported Meds & Active Scripts Active Tramadol (Tramadol HCl) 50 Mg Tab 50 Mg PO Q6H PRN Robaxin (Methocarbamol) 750 Mg Tab 750 Mg PO Q6HR Ibuprofen 800 Mg Tab 800 Mg PO Q8H PRN Macrobid (Nitrofurantoin Monoh/Nitrofur Macro) 100 Mg Cap 100 Mg PO BID 7 Days Proair Hfa 8.5 GM Inh (Albuterol Sulfate) 90 Mcg/Act Aer 2 Puff INH Q4HR PRN 108 mcg/actuation Reported Nexplanon Implant (Etonogestrel Implant) 68 Mg Imp 68 Mg I-DERMAL ONCE Review of Systems Except as stated in HPI: all other systems reviewed are Neg Physical Exam Narrative GENERAL: Alert well-appearing 26-year-old female SKIN: Warm and dry. He isn't to the left elbow HEAD: Atraumatic. Normocephalic. EYES: Pupils equal and round. EOMs intact. No injection or drainage. ENT: No nasal bleeding or discharge. Mucous membranes pink and moist. No facial bone tenderness NECK: Trachea midline. No cervical spine tenderness CARDIOVASCULAR: Regular rate and rhythm. No chest wall tenderness RESPIRATORY: No accessory muscle use. Clear to auscultation. Breath sounds equal bilaterally. GASTROINTESTINAL: Abdomen soft, non-tender, nondistended. MUSCULOSKELETAL: Extremities without clubbing, cyanosis, or edema. No obvious deformities. Left upper extremity:+ttp over the olecranon & dorsal aspect of the wrist. No obvious deformity. She can flex and extend the elbow and wrist without difficulty. 2+ brachial and radial pulses. Normal sensation. Brisk cap refill. Right lower extremity: +ttp anterior aspect of the ankle. No obvious deformity. She can flex and extend the foot without difficulty. 2+ DP pulse. Brisk cap refill. BACK: No CVA tenderness. No rash. +ttp lumbar spine. No obvious deformity NEUROLOGICAL: Awake and alert. No obvious cranial nerve deficits. Motor grossly within normal limits. Five out of 5 muscle strength in the arms and legs. Normal speech. PSYCHIATRIC: Appropriate mood and affect; insight and judgment normal. Data Data Last Documented VS Vital Signs Date Time Temp Pulse Resp B/P (MAP) Pulse Ox O2 Delivery O2 Flow Rate FiO2 05/12/17 17:52 98.4 97 12 136/96 (109) 95 Orders Orders Ed Urine Pregnancytest Poc (05/12/17 18:48) Spine, Lumbar - Ltd (Ap & Lat) (05/12/17 ) Elbow, Limited (Ap&Lat) (05/12/17 ) Wrist, Complete ([id number]) (05/12/17 ) Ankle, Complete (Lat9anm) (05/12/17 ) Ct Brain W/O Iv Contrast(Rout) (05/12/17 ) Splint Or Brace Apply/Monitor (05/12/17 20:16) Splint Or Brace Apply/Monitor (05/12/17 20:16) Wound Care (05/12/17 20:16) MDM Medical Decision Making Medical Screen Exam Complete: Yes Emergency Medical Condition: Yes Differential Diagnosis Fracture, sprain, contusion, closed head injury, ICH Narrative Course 26 -year-old female here with multiple injuries caused by a fall off a fence today. She is well-appearing. She is observed ambulating several times to the restroom with a steady gait. X-rays are negative for fracture. Brain CT negative. All findings were discussed with patient. Return precautions were discussed. Patient verbalizes understanding and agrees to plan Diagnosis Primary Impression: Contusion Qualified Codes: S40.022A - Contusion of left upper arm, initial encounter Additional Impressions: Ankle sprain Qualified Codes: S93.401A - Sprain of unspecified ligament of right ankle, initial encounter Lumbar strain Qualified Codes: S39.012A - Strain of muscle, fascia and tendon of lower back , initial encounter Head injury Qualified Codes: S09.90XA - Unspecified injury of head, initial encounter Referrals: Primary Care Physician Departure Forms: Tests/Procedures, Work Release Enter return to work date: May 14, 2017 Additional Instructions: Michael wrap as directed. Sling for comfort. Ice and elevate the extremities. Medications as directed. Follow-up with her primary doctor this week. If you have continued pain in the left elbow or right ankle he may need repeat x -rays Scripts Methocarbamol (Robaxin) 750 Mg Tab 750 MG PO QID for Muscle Spasm, #12 TAB 0 Refills Prov: Divya Rodriguez 05/12/17 Ibuprofen (Ibuprofen) 800 Mg Tab 800 MG PO Q6HR Y for PAIN, #40 TAB 0 Refills Prov: Divya Rodriguez 05/12/17 Disposition: 01 DISCHARGE HOME Condition: Stable Divya Rodriguez May 12, 2017 20:26
== END 2017-05-12 20:54 | disposition home or self-care (01) ==
LOC: PHED 17:48 → PHEFT 20:54
DX: S93.401A Sprain of unspecified ligament of right ankle, initial encounter (principal); S39.012A Strain of muscle, fascia and tendon of lower back, initial encounter; S09.90XA Unspecified injury of head, initial encounter; S40.022A Contusion of left upper arm, initial encounter; J45.909 Unspecified asthma, uncomplicated; F17.200 Nicotine dependence, unspecified, uncomplicated; W17.89XA Other fall from one level to another, initial encounter; Z79.899 Other long term (current) drug therapy; Z88.2 Allergy status to sulfonamides
CPT/HCPCS: 70450; 72100; 73070; 73110; 73610; 84703; 99284; L1906